=== PATIENT | female | born 1960 | race Caucasian/White ===

== ENCOUNTER → 2019-03-05 | Outpatient (CLI) | payer MEDICAID ==
[~2019-03-05] MED LIST: REGADENOSON 0.4 MG/5 ML DISP.SYRIN. IV ONE
--- NOTE | 2019-03-05 13:52 | PCVCIMAG ---
APPROVED REPORT Imaging Protocol: Rest Tc-99m/Stress Tc-99m 1 day Study performed: 03/05/2019 11:48:24 Indication: SOA on Exertion, Abn EKG Patient Location: Out-Patient Stress Nurse: Kristy Maria RN, Alicia Espinoza RN HI Tech:Isidro Martell NMTCB Ht: 5 ft 5 in Wt: 166 lbs BSA: 1.83 m2 HR: 71 bpm BP: 145/86 mmHg BMI: 27.62 Rhythm: Normal Sinus Rhythm Medical History Medical History: GERD, Abn EKG Medications: No cardiac medications Allergies: No known drug allergies Pretest Chest Pain Characteristics: No chest pain Exercise History: Indeterminate Resting Data Rest SPECT myocardial perfusion imaging was performed in supine position 45 minutes following the intravenous injection of 9.9 mCi of Tc-99m Sestamibi. Time of rest injection: 1115 Date: 03/05/2019 Administration Route: IV Administration Site: Right AC Pharmacologic Stress Pharmacologic stress test was performed by injecting Regadenoson 0.4 mg IV push over 10-15 seconds immediately followed by the intravenous injection of 30.8 mCi of Tc-99m Sestamibi. Time of stress injection: 1235 Date: 03/05/2019 Administration Route: IV Administration Site: Right AC Gated Stress SPECT was performed 45 minutes after stress injection. The images were gated to evaluate regional wall motion and calculate left ventricular ejection fraction. Stress Test Details Stress Test: Pharmacologic stress testing performed using 0.4 mg of regadenoson per 5 mL given IV over 10 seconds. Reason for pharmacologic stress test: Feet issues. HRMax Heart Rate (APMHR): 162 bpm Resting HR: 71 bpmTarget HR (85% APMHR): 137 bpm Max HR Achieved: 96 bpm % of APMHR: 59 Recovery HR: 77 bpm BP Resting BP: 145/86 mmHg Max BP: 127/85 mmHg Recovery BP: 126/69 mmHg ECG Resting ECG: Sinus Rhythm Stress ECG: Sinus Rhythm ST Change: Non-ischemic Arrhythmia: None Recovery ECG: Sinus Rhythm Clinical Reason for Termination: Completed protocol Stress Symptoms: None Exercise duration: min 55 sec Symptoms resolved during recovery. Study Quality Study: Good Artifact: Mild Breast artifact Study Data Post stress, the left ventricular ejection was 75%.. SSS: 1 SRS: 1 SDS: 1 TID = 1.08. Perfusion There is a medium area of mildly reduced uptake in the mid and apical segment of the anterior wall which is seen on the stress images as well as the resting images. This area thickens and moves normally and is most consistent with attenuation artifact. Wall Motion Normal left ventricular wall motion. Nuclear Conclusion ECG Findings: negative for ischemia Clinical Findings: non-diagnostic Nuclear Findings: negative for ischemia Exercise Capacity: not assessed Left Ventricular Function: normal Risk Study: low This study is of low probability for inducible ischemia or prior infarct. Normal global and segmental LV systolic function. Artifact: Mild Breast artifact
--- NOTE | 2019-03-05 13:54 | PCVCIMAG ---
APPROVED REPORT Study performed: 03/05/2019 11:46:44 EXAM: Comprehensive 2D, Doppler, and color-flow Echocardiogram Patient Location: Echo lab BSA: 1.83 HR: 67 bpmBP: 145/86 mmHg Rhythm: NSR Other Information Study Quality: Adequate Indications Abnormal ECG Pre-Op Dyspnea 2D Dimensions IVSd: 11.32 (7-11mm) LVDd: 36.66 mm PWd: 10.43 (7-11mm)Ascending Ao: 36.58 (22-36mm) LVDs: 27.22 (25-40mm) Left Atrium: 33.30 (27-40mm) Aortic Root: 30.65 mm LV Single Plane 4CH: 62.74 % LV Single Plane 2CH: 64.72 % Biplane EF: 63.9 % Volumes Left Atrial Volume (Systole) Single Plane 4CH: 52.61 mLSingle Plane 2CH: 61.56 mL LA ESV Index: 32.00 mL/m2 Aortic Valve AoV Peak Anupam.: 1.49 m/s AO Peak Gr.: 8.90 mmHgLVOT Max P.22 mmHg LVOT Max V: 1.14 m/s Mitral Valve E/A Ratio: 0.8 MV Decel. Time: 241.06 ms MV E Max Anupam.: 0.64 m/s MV A Anupam.: 0.83 m/s IVRT: 103.81 ms Pulmonary Valve PV Peak Anupam.: 0.93 m/sPV Peak Gr.: 3.45 mmHg Pulmonary Vein P Vein S: 0.23 m/sP Vein A: 0.30 m/s P Vein D: 0.29 m/sP Vein A Dur.: 155.7 msec P Vein S/D Ratio: 0.79 Tricuspid Valve TR Peak Anupam.: 3.03 m/s TR Peak Gr.: 36.67 mmHg TV Vmax: 0.55 m/s Left Ventricle The left ventricle is normal size. There is normal LV segmental wall motion. There is normal left ventricular wall thickness. Left ventricular systolic function is normal. The left ventricular ejection fraction is within the normal range. LVEF is 55-60%. Grade I - abnormal relaxation pattern. Right Ventricle The right ventricle is normal size. The right ventricular systolic function is normal. Atria The left atrium size is normal. The right atrium size is normal. Aortic Valve The aortic valve is normal in structure. Trace aortic regurgitation. There is no aortic valvular stenosis. Mitral Valve The mitral valve is normal in structure. Mild mitral regurgitation. No evidence of mitral valve stenosis. Tricuspid Valve The tricuspid valve is normal in structure. Mild tricuspid regurgitation with PAP of 43 mmHg. Pulmonic Valve The pulmonary valve is normal in structure. Mild pulmonic regurgitation. Great Vessels The aortic root is normal in size. IVC is normal in size and collapses >50% with inspiration. Pericardium There is no pericardial effusion. There is no pleural effusion. <Conclusion> The left ventricle is normal size. There is normal left ventricular wall thickness. Left ventricular systolic function is normal. Grade I - abnormal relaxation pattern. The right ventricle is normal size. The left atrium size is normal. The aortic valve is normal in structure. Trace aortic regurgitation. Mild mitral regurgitation. Mild tricuspid regurgitation with PAP of 43 mmHg.
== END | disposition home or self-care (01) ==
LOC: PCVCIMAG 11:11
PROVIDERS: ATTEND Internal Medicine Cardiovascular Disease
DX: R94.31 Abnormal electrocardiogram [ECG] [EKG] (principal); K21.9 Gastro-esophageal reflux disease without esophagitis; R06.09 Other forms of dyspnea
CPT/HCPCS: 78452; 93017; 93306; A9500; J2785